=== PATIENT | female | born 1990 | race African-American/Black ===

== ENCOUNTER 2023-07-30 19:26 | Emergency (ER) | payer SELFPAY ==
[~2023-07-30] VITALS: Ht 172.7 cm; Wt 68.0 kg
[2023-07-30 19:38] VITALS: TEMP 98.6; O2SAT 99
[2023-07-30] MEDS: LIDOCAINE HCL/PF 1% 10 MG/ML 5ML VIAL INFIL ONE (20:23)
[2023-07-30 20:24] VITALS: BP 106/87; PULSE 90; RESP 18
[2023-07-30] MEDS: BACITRACIN ZINC OINT UDPKT TOP ONE (20:24)
[2023-07-30] MEDS: HYDROCODONE/ACETAMINOPHEN 5/325MG TABLET PO ONE (20:24)
[2023-07-30] MEDS ORDERED: SULF1TAB48 MT (22:22)
[2023-07-30] MEDS ORDERED: AMOX1TAB16 MT (22:22)
[2023-07-30] MEDS ORDERED: IBUP-2028 MT (22:24)
== END 2023-07-31 00:09 | disposition home or self-care (01) ==
LOC: ER 19:26
DX: N75.1 Abscess of Bartholin's gland (principal); D64.9 Anemia, unspecified
CPT/HCPCS: 99284; 56405; J3490